=== PATIENT | female | born 1970 | race Two or more races ===

== ENCOUNTER → 2025-01-06 | Outpatient (BNVA) | payer MEDICAID, SELFPAY | END | disposition home or self-care (01) | PROVIDERS: PCP Physician Assistant; Referring Provider Physician Assistant; Visit Provider Urology | DX: C67.9 Malignant neoplasm of bladder, unspecified (principal); E11.9 Type 2 diabetes mellitus without complications; I10 Essential (primary) hypertension; E66.01 Morbid (severe) obesity due to excess calories; Z68.35 Body mass index [BMI] 35.0-35.9, adult | CPT/HCPCS: 81003; 99212; G0463 ==

== ENCOUNTER 2025-02-23 14:24 | Emergency (ER) | payer MEDICAID, SELFPAY ==
[2025-02-23 14:51] VITALS: BP 142/93; PULSE 79; RESP 18; TEMP 36.7; O2SAT 95; BMI 31.4
--- NOTE | 2025-02-23 14:57 | XR_ITS ---
Examination: Ribs, left, with PA chest, 5 views Technique: Chest PA, RIBS AP, RPO, LPO, AP coned lower ribs 5 views Exam date and time: February 23, 2025 1500 hours INDICATIONS: Patient fell down today with into the left chest left rib pain Findings: Normal heart size No pneumothorax. Moderate osteopenia Acute fracture left seventh rib anteriorly without significant displacement IMPRESSION: No pneumothorax pulmonary contusion or hemothorax Acute fracture left seventh rib anteriorly
--- NOTE | 2025-02-23 14:58 | PD.EDCHEST ---
ED Chest Pain RME/HPI General Chief Complaint: Chest Pain Stated Complaint: LEFT CHEST PAIN SP FALL Time Seen by Provider: 02/23/25 14:37 Arrival date/time: 02/23/25 14:24 RME / HPI RME / HPI narrative: 54-year-old female patient came in for evaluation regarding anterior lateral chest wall pain. Patient sustained a ground-level fall landing on her chest, after patient tripped on something resulting in the pain, described as sharp pain, severity moderate. Pain is worse with deep breathing and coughing. Patient denies any headache denies any head injury denies any neck pain denies any pelvic pain denies any abdominal pain patient is ambulatory. Incident happened few minutes prior to ER visit. Patient is not taking any blood thinner Related Data Home Medications ?Medication ?Instructions ?Recorded ?Confirmed insulin glargine 100 unit/mL (3 20 unit subcut BID 09/19/21 01/06/25 mL) subcutaneous pen (Basaglar KwikPen U-100 Insulin) losartan 50 mg tablet 50 mg PO QDAY 09/19/21 01/06/25 albuterol sulfate 90 mcg/actuation 2 puff inhalation Q6H PRN Wheezing 08/19/22 01/06/25 aerosol inhaler empagliflozin 25 mg tablet 25 mg PO QAM 08/19/22 01/06/25 (Jardiance) atorvastatin 10 mg tablet 10 mg PO QDAY 01/06/25 01/06/25 Previous Rx's ?Medication ?Instructions ?Recorded ibuprofen 800 mg tablet 800 mg PO Q8H PRN pain #30 tabs 02/23/25 lidocaine 5 % topical patch 1 patch topical Q24H #15 ea 02/23/25 Allergies Allergy/AdvReac Type Severity Reaction Status Date / Time No Known Allergies Allergy Verified 01/06/25 13:42 Review of Systems Review of Systems Narrative Review of Systems: Review of system reviewed and within normal limits except mentioned in HPI ED Exam Narrative Physical exam: VITAL SIGNS: Reviewed. GENERAL APPEARANCE: Alert and interactive, follows commands, no acute distress, HEAD AND FACE: Non-traumatic. ENT: PERRL, pink conjunctivitis, eyelid no trauma, Mucous membrane moist. NECK: Supple, nontender, no nuchal rigidity. CHEST: + Left anterior lateral chest wall tenderness, no crepitus, no paradoxical movement, no retractions. LUNGS: Clear, well ventilated, symmetric, no rales, no wheezing, no ronchi, no stridor, good breath sounds bilaterally. HEART: Regular rate, regular rhythm, no murmur, no gallops. ABDOMEN: Soft, positive bowel sounds, nondistended, no guarding, nontender, no rebound, no masses, RECTAL: Deferred. GENITAL: Deferred. NEUROLOGICAL: Gross motor function intact sensory function intact, Appropriate for age. MUSCULOSKELETAL: low back nontender, full range of motion. EXTREMITIES: Nontender, full range of motion. SKIN: Color pink, dry, no rash, no lacerations, no abrasions, no contusions. LYMPHATICS: Deferred. Course Quality Measures none Orders Category Date Time Status Incentive Spirometry Treatment NOW Care 02/23/25 16:02 Active XR ribs LT min 3V w CXR1V Stat Exams 02/23/25 14:57 Completed Ketorolac Inj [Toradol Inj] Med 02/23/25 14:57 Discontinued 30 mg IM X1 ONE Vital Signs Vital signs: Vital Signs Temperature 98.1 F 02/23/25 14:51 Pulse Rate 79 02/23/25 14:51 Respiratory Rate 18 02/23/25 14:51 Blood Pressure 142/93 H 02/23/25 14:51 Pulse Oximetry (%) 95 02/23/25 14:51 Oxygen Delivery Method Room Air 02/23/25 14:51 Chest Pain MDM Narrative MDM Narrative:: 54-year-old female patient came in for evaluation regarding anterior lateral chest wall pain. Patient sustained a ground-level fall landing on her chest, after patient tripped on something resulting in the pain, described as sharp pain, severity moderate. Pain is worse with deep breathing and coughing. Patient denies any headache denies any head injury denies any neck pain denies any pelvic pain denies any abdominal pain patient is ambulatory. Incident happened few minutes prior to ER visit. Patient is not taking any blood thinner X-ray of his chest showed rib fracture #7 no pneumothorax no hemothorax no other complication noted. Results discussed with the patient. Patient received Toradol with significant improvement of pain Incentive spirometry was started in the emergency room. Patient is satting 95% on room air Patient data External records reviewed:: None Clinical information provided by:: patient and family Social determinants that could affect healthcare access:: none (None) Patient has the following chronic illnesses:: None How is presenting disease/condition affected by chronic disease/condition?: no chronic disease Evaluation data The following diagnostics were reviewed and interpreted by me:: radiology exam(s) Lab and/or radiology exams considered but not ordered:: None Interpretation Summary: see results MDM Medications / Prescriptions Medications or Prescriptions considered but not ordered:: None Medication administrations:: Medication Administration History Discontinued Medications Ketorolac Tromethamine (Ketorolac Inj 60 Mg/2 Ml Vial) 30 mg IM X1 ONE Stop: 02/23/25 14:58 Last Admin: 02/23/25 15:19 Dose: 30 mg Documented By: KRYSTIN Toradol IM Consultations Consultation(s) initiated? (list below): No Diagnosis Chest Pain Differential Diagnosis: fracture of rib and costochondritis Most likely diagnosis given after review of the tests above:: Rib fracture Admission Indicated Admission indicated?: not indicated Admission Request Was there a request for admission?: No Disposition Plan Disposition Plan: Discharge Discharge Attestation Discharge Attestation: The patient and all family members were given an opportunity to ask questions and understood the discharge instructions. Discharge instructions specifically effects, indications for sooner follow up or return to the emergency department, and the expected course of current diagnosis. Patient condition: Stable Discharge Plan Plan Patient Disposition: HOME (Self Care) Discharge Disposition comment: Stable Prescriptions/Referrals Prescriptions/Med Rec: New lidocaine 5 % adhesive patch,medicated 1 patch topical Q24H Qty: 15 0RF Rx Instructions: leave on most painful area for up to 12 hrs ibuprofen 800 mg tablet 800 mg PO Q8H PRN (Reason: pain) Qty: 30 0RF No Action atorvastatin 10 mg tablet 10 mg PO QDAY Ryder Mortensen U-100 Insulin 100 unit/mL (3 mL) insulin pen 20 unit subcut BID losartan 50 mg tablet 50 mg PO QDAY Jardiance 25 mg Tablet 25 mg PO QAM albuterol sulfate 90 mcg/actuation Hfa Aerosol Inhaler 2 puff INHALATION Q6H PRN (Reason: Wheezing) Referrals: Polo Nassar [Primary Care Provider] - In 1 week Problem List Clinical Impression: Closed rib fracture Patient/Caregiver Discharge Instructions Discharge Activity: activity as tolerated Education Materials: Rib Fracture (Broken Rib) Additional Instructions: Thank you for the opportunity for serving you today. You are stable for discharged . You are advised to: Follow-up with your PCP in 1 to 2 days Return to ED for worsening of symptoms Increase oral fluids Take medication as prescribed Use your incentive spirometry as instructed Print Language: Greenlandic Stand Alone Forms: [facility] Award Info., Patient Portal Info Letter PA/AIRPLANE CHARTER CLERK Supervising Physician HENRY/NELIA Supervising Physician: MD Nilda
[2025-02-23] MEDS: KETOROLAC INJ 60 MG/2 ML VIAL 30 MG IM (15:19)
[2025-02-23 16:10] VITALS: BP 128/84; PULSE 71; RESP 14; TEMP 36.6; O2SAT 97
== END 2025-02-23 16:25 | disposition home or self-care (01) ==
PROVIDERS: Emergency Provider Podiatrist Foot & Ankle Surgery; PCP Physician Assistant
DX: S22.32XA Fracture of one rib, left side, initial encounter for closed fracture (principal); W01.0XXA Fall on same level from slipping, tripping and stumbling without subsequent striking against object, initial encounter
CPT/HCPCS: 71101; 96372; 99283; J1885

== ENCOUNTER → 2025-05-05 | Outpatient (BNVA) | payer MEDICAID, SELFPAY | END | disposition home or self-care (01) | PROVIDERS: PCP Physician Assistant; Referring Provider Physician Assistant; Visit Provider Urology | DX: N35.92 Unspecified urethral stricture, female (principal); I10 Essential (primary) hypertension; E66.9 Obesity, unspecified; Z68.37 Body mass index [BMI] 37.0-37.9, adult | CPT/HCPCS: 52281; 81003; 96372; A4217; A4649; C1894; J1580; A9270 ==